=== PATIENT | male | born 1965 | race Caucasian/White ===

== ENCOUNTER 2024-04-11 06:59 | Day surgery (SDC) | payer OTHER ==
[~2024-04-11] VITALS: Ht 185.4 cm; Wt 82.1 kg
[2024-04-11] MEDS ORDERED: MEPERIDINE 100 MG INJ. 100 MG/ML VIAL ONE (08:04)
[2024-04-11] MEDS ORDERED: MIDAZOLAM HCL 5 MG/5 ML VIAL ONE (08:05)
[2024-04-11 13:30] VITALS: O2SAT 99
[2024-04-11 15:07] VITALS: BP_SYST 108; PULSE 56; RESP 15
== END 2024-04-11 09:52 | disposition home or self-care (01) ==
LOC: SMU 06:59 → SDS 06:59 → SMU 07:18 → SDS 09:52
PROVIDERS: ATTEND Internal Medicine Gastroenterology
DX: Z12.11 Encounter for screening for malignant neoplasm of colon (principal); D12.3 Benign neoplasm of transverse colon; K64.8 Other hemorrhoids; E78.5 Hyperlipidemia, unspecified; Z98.890 Other specified postprocedural states; Z79.899 Other long term (current) drug therapy
CPT/HCPCS: 45380; 99152; 88305; G0378; J2250; J2175